=== PATIENT | male | born 1985 | race Caucasian/White ===

== ENCOUNTER 2017-05-04 13:44 | Outpatient (CLI) | payer BC | END 2017-05-04 13:45 | disposition home or self-care (01) | LOC: CTENTCT 13:44 | PROVIDERS: ATTEND Otolaryngology Plastic Surgery within the Head & Neck | DX: J32.9 Chronic sinusitis, unspecified (principal) | CPT/HCPCS: 70486 ==

== ENCOUNTER 2017-05-10 08:04 | Day surgery (SDC) | payer BC ==
[2017-05-09 13:21] VITALS: BMI 25.9
[2017-05-10] MEDS ORDERED: Oxymetazoline HCl 0.05% ( 15 ML ) ONE ×2 (08:51→09:29)
[2017-05-10] MEDS ORDERED: Midazolam HCl 2 mg/2 ml Vial ONE (09:22)
[2017-05-10] MEDS ORDERED: Fentanyl 100 MCG/2 ML VIAL ONE ×4 (09:22→12:11)
[2017-05-10] MEDS ORDERED: Lidocaine 1% w/Epinephrine 1:200K 30 ML VIAL ONE (09:28)
[2017-05-10] MEDS ORDERED: Bacitracin Zinc Ointment 30 gm TUBE ONE (09:29)
[2017-05-10] MEDS ORDERED: Propofol 200 MG/20 ML VIAL ONE (09:45)
[2017-05-10] MEDS ORDERED: Lidocaine 1% PF 5 ML VIAL ONE (09:45)
[2017-05-10] MEDS ORDERED: Dexamethasone 20 MG/5 ML VIAL ONE (09:45)
[2017-05-10] MEDS ORDERED: Ondansetron HCl/PF 4 MG/2 ML Vial ONE (09:45)
[2017-05-10] MEDS ORDERED: Glycopyrrolate 0.2 MG/ML 5 ML SYRINGE ONE (09:45)
[2017-05-10] MEDS ORDERED: Hydrocodone-Acetamin 15 ML UDCUP ONE (13:48)
--- NOTE | 2017-05-11 09:16 | OP ---
DATE OF PROCEDURE: 05/10/2017 PREOPERATIVE DIAGNOSES: 1. Chronic rhinosinusitis. 2. Allergic fungal sinusitis. 3. Nasal septal deviation. 4. Bilateral inferior turbinate hypertrophy. 5. Nasal obstruction. 6. Unilateral alignment. SURGEON: Luis Hudson M.D. ESTIMATED BLOOD LOSS: 50 mL COMPLICATIONS: None. ANESTHESIA: GETA. PROCEDURES PERFORMED: 1. Bilateral endoscopic sinus surgery, total ethmoidectomies. 2. Bilateral endoscopic sinus surgery, maxillary antrostomies. 3. Bilateral endoscopic sinus surgery, frontal sinusotomy. 4. Nasal septoplasty. 5. Bilateral inferior turbinate submucosal resection. 6. Image-guided cranial base navigation surgery with landmark. PROCEDURE IN DETAIL: Patient was taken to the operating room and placed supine on the table. Gener al endotracheal anesthesia was obtained by the Anesthesia staff. Tube was secured in the left lower lip. Patient was then placed in the beach chair position, and Afrin pledgets were placed in the jennifer al cavity. Injections of 1% lidocaine with 1:100,000 epinephrine were made into the nasal septum as well as the inferior turbinates. Patient was then prepped and draped in standard surgical fashion for nasal surgery. Following this, the Afrin pledgets were removed. A Maldonado incision was made on the left nasal septum. Submucoperichondrial dissection was performed. The deviated portions of the septum included portions of the cartilage and the bony septum. These isolated areas were removed us ing three cutting rongeurs. There was noted to be a large dorsal and caudal strut, left intact for support of the nose. The mucoperichondrial flaps were then reapproximated using a 4-0 gut stitch. Any straight pieces of cartilage were crushed prior to this and placed between the mucoperichondrial flaps. Following this, the inferior turbinates were then punctured with a submucosal coblation wan d, and submucosal coblations were performed of multiple areas of the inferior portion of the anterio r inferior turbinate. Please note that the submucosal microdebrider was used to submucosally resect the anterior and infer ior portions of the inferior turbinates bilaterally. Following this, the inferior turbinates were g ently outfractured. A landmark image guidance system was set up and calibrated was noted to be accu rate. A 0 degree scope was advanced in the nasal cavity along with the tracking tools of the 0 degr ee microdebrider, 40 degree microdebrider as well as straight and curved suction. The middle turbin ates were identified and were gently medialized with a [place] elevator. The uncinate process was jannie ntified and was anteriorly fractured using the ball ended probe. Microdebrider and the upbiting Drew mashasley forceps were used to remove the uncinate as well as to identify the natural maxillary sinus o stia, which was gently widened using the ball-ended probe. Following this, the natural maxillary si nus ostia was gently widened using the straight microdebrider on the right maxillary sinus and right ethmoidal area. Copious amounts of fungal debris and polyps were removed using curved suction and upbiting forceps. Following this, right maxillary sinus and anterior ethmoidal area was opened and irrigated. Following this, the ethmoidal bulla was identified bilaterally and was punctured on its medial and inferior aspect and was removed. Following this, the grand lamella was identified bilate rally and was punctured in the posterior ethmoidal cells using the navigation device working from po sterior to anterior. The straight and curved microdebrider were used to open the ethmoidal cells in a mucosal-sparing technique. Following this, the upbiting 40 degree microdebrider blade connecting to the landmark navigation system as well as the 45 degree scope was used to visualize the frontal recess area, which was then further opened opening the frontal sinus ostia bilaterally using the giorgio rodebrider. Following this, the nasal cavity was irrigated. MeroPacks were placed. Merrill splints were placed and secured. The patient tolerated the procedure well.
== END 2017-05-10 14:50 | disposition home or self-care (01) ==
LOC: SDC 08:04
PROVIDERS: ATTEND Otolaryngology Plastic Surgery within the Head & Neck
PROC: 09RM07Z Replacement of Nasal Septum with Autologous Tissue Substitute, Open Approach (ICD-10-PCS; principal; 2017-05-10)
PROC: 099R8ZZ Drainage of Left Maxillary Sinus, Via Natural or Artificial Opening Endoscopic (ICD-10-PCS; principal; 2017-05-10)
PROC: 09BS8ZZ Excision of Right Frontal Sinus, Via Natural or Artificial Opening Endoscopic (ICD-10-PCS; principal; 2017-05-10)
PROC: 09TU8ZZ Resection of Right Ethmoid Sinus, Via Natural or Artificial Opening Endoscopic (ICD-10-PCS; principal; 2017-05-10)
PROC: 09BT8ZZ Excision of Left Frontal Sinus, Via Natural or Artificial Opening Endoscopic (ICD-10-PCS; principal; 2017-05-10)
PROC: 09TL0ZZ Resection of Nasal Turbinate, Open Approach (ICD-10-PCS; principal; 2017-05-10)
PROC: 09TV8ZZ Resection of Left Ethmoid Sinus, Via Natural or Artificial Opening Endoscopic (ICD-10-PCS; principal; 2017-05-10)
PROC: 099Q8ZZ Drainage of Right Maxillary Sinus, Via Natural or Artificial Opening Endoscopic (ICD-10-PCS; principal; 2017-05-10)
DX: J32.9 Chronic sinusitis, unspecified (principal); J34.2 Deviated nasal septum; J30.89 Other allergic rhinitis; J34.3 Hypertrophy of nasal turbinates; F90.0 Attention-deficit hyperactivity disorder, predominantly inattentive type; H33 Retinal detachments and breaks; F17.210 Nicotine dependence, cigarettes, uncomplicated; Z79.52 Long term (current) use of systemic steroids; Z79.2 Long term (current) use of antibiotics; Z88.6 Allergy status to analgesic agent; Z88.0 Allergy status to penicillin; Z98.890 Other specified postprocedural states
CPT/HCPCS: 96374; J0131; J1100; J1170; J2001; J2250; J2405; J2704; J3010

== ENCOUNTER 2019-12-20 10:02 | Emergency (ER) | payer BC, MEDICARE ==
[2019-12-20 10:35] LABS: #Eosinphils 0.1 thou/uL (0.0-0.7); #Lymphocytes 2.5 thou/uL (1.20-3.40); #Monocytes 0.5 thou/uL (0.11-0.59); #Neutrophils 3.4 thou/uL (1.40-6.50); %Basophils 0.7 % (0.0-1.0); %Eosinophils 1.5 % (0.0-10.0); %Lymphocytes 37.6 % (21.0-51.0); %Monocytes 8.3 % (0.0-10.0); %Neutrophils 51.8 % (42.0-75.0); Hemoglobin 14.6 g/dL (14.0-18.0); Mean Corpuscular HGB CONC 33.2 g/dL (32.0-36.0); Mean Corpuscular Hemoglobin 29.2 pg (27.0-31.0); Mean Corpuscular Volume 87.8 fL (78.0-98.0); Platelet Count 308 thou/uL (130-400); RBC Distribution Width 12.1 % (11.5-14.5); Red Blood Cell (RBC) Count 5.01 mill/uL (4.70-6.10); White Blood Cell (WBC) Count 6.5 thou/uL (4.8-10.8)
[2019-12-20 11:02] LABS: ALT (SGPT) 19 U/L (8-55); AST (SGOT) 23 U/L (5-34); Albumin 4.4 g/dL (3.5-5.0); Alkaline Phosphatase 76 U/L (40-110); Anion Gap 11 mmol/L (10-20); BUN (Urea Nitrogen) 16 mg/dL (8.9-20.6); Bilirubin, Total 0.5 mg/dL (0.2-1.2); CK (CPK) 112 U/L (30-200); Calc. Creatinine Clearance 0 mL/min (70-130); Calcium 9.5 mg/dL (7.8-10.44); Carbon Dioxide 27 mmol/L (22-29); Chloride 104 mmol/L (98-107); Estimated GFR-MDRD Greater than 90; Glucose 98 mg/dL (70-105); Lipase 31 U/L (8-78); Potassium 4.4 mmol/L (3.5-5.1); Protein, Total 7.4 g/dL (6.0-8.3); Sodium 138 mmol/L (136-145)
--- NOTE | 2019-12-20 13:21 | RAD ---
PORTABLE UPRIGHT FRONTAL CHEST RADIOGRAPH: DATE: 12/20/2019. COMPARISON: None. HISTORY: Chest pain. FINDINGS: Heart and mediastinal contours are unremarkable. Lungs appear clear. IMPRESSION: No acute findings. POS: EJ
== END 2019-12-20 12:46 | disposition home or self-care (01) ==
LOC: ERS 10:02
DX: R07.89 Other chest pain (principal); F17.210 Nicotine dependence, cigarettes, uncomplicated
CPT/HCPCS: 71045; 80053; 82550; 83690; 84484; 85025; 93005

== ENCOUNTER 2021-09-26 11:57 | Emergency (ER) | payer MEDICARE ==
[2021-09-26] MEDS ORDERED: Bupivacaine 0.5% 10 ML VIAL ONE (14:10)
== END 2021-09-26 14:55 | disposition home or self-care (01) ==
LOC: ERS 11:57
DX: L03.011 Cellulitis of right finger (principal); Z87.891 Personal history of nicotine dependence
CPT/HCPCS: 10060; 87070; 87077; 87186; 87205; J3490

== ENCOUNTER 2023-01-26 10:58 | Emergency (ER) | payer MEDICARE ==
[2023-01-26 11:35] LABS: #Eosinphils 0.2 thou/uL (0.0-0.7); #Monocytes 0.7 thou/uL (0.11-0.59); #Neutrophils 4.8 thou/uL (1.40-6.50); %Basophils 0.5 % (0.0-1.0); %Eosinophils 2.5 % (0.0-10.0); %Lymphocytes 34.7 % (21.0-51.0); %Monocytes 7.9 % (0.0-10.0); %Neutrophils 54.2 % (42.0-75.0); Hemoglobin 14.5 g/dL (14.0-18.0); Mean Corpuscular HGB CONC 33.5 g/dL (32.0-36.0); Mean Corpuscular Hemoglobin 29.7 pg (27.0-31.0); Mean Corpuscular Volume 88.7 fl (78.0-98.0); Mean Platelet Volume 9.6 fL (7.4-10.4); Platelet Count 302 10x3/uL (130-400); RBC Distribution Width 13.6 % (11.5-14.5); Red Blood Cell (RBC) Count 4.88 mill/uL (4.70-6.10); White Blood Cell (WBC) Count 8.8 10x3/uL (4.8-10.8)
[2023-01-26] MEDS ORDERED: Aspirin Chewable 81 MG TAB ONE (12:07)
[2023-01-26 12:08] LABS: ALT (SGPT) 18 U/L (8-55); AST (SGOT) 22 U/L (5-34); Albumin 4.3 g/dL (3.5-5.0); Alkaline Phosphatase 73 U/L (40-110); Anion Gap 13 mmol/L (10-20); BUN (Urea Nitrogen) 11 mg/dL (8.9-20.6); Bilirubin, Total 0.3 mg/dL (0.2-1.2); Calc. Creatinine Clearance 0 mL/min (70-130); Calcium 9.9 mg/dL (7.8-10.44); Carbon Dioxide 25 mmol/L (22-29); Chloride 107 mmol/L (98-107); Estimated GFR 113; Globulin 3.2 g/dL (2.4-3.5); Glucose 96 mg/dL (70-105); Potassium 4.5 mmol/L (3.5-5.1); Protein, Total 7.5 g/dL (6.0-8.3); Sodium 140 mmol/L (136-145)
[2023-01-26 12:14] LABS: Magnesium 2.3 mg/dL (1.6-2.6)
[2023-01-26 15:38] LABS: Troponin I Less than 0.010 ng/mL (< 0.028)
== END 2023-01-26 15:49 | disposition home or self-care (01) ==
LOC: ERS 10:58
DX: I49.3 Ventricular premature depolarization (principal); Z87.891 Personal history of nicotine dependence
CPT/HCPCS: 71045; 80053; 83735; 84484; 85025; 85379; 93005

== ENCOUNTER 2023-06-17 07:08 | Emergency (ER) | payer MEDICARE ==
[2023-06-17] MEDS ORDERED: Ondansetron PF 4 MG/2 ML Vial ONE (07:31)
[2023-06-17] MEDS ORDERED: Haloperidol Lactate 5 MG/ML VIAL ONE (07:49)
[2023-06-17 08:16] LABS: #Monocytes 0.4 thou/uL (0.11-0.59); #Neutrophils 9.5 thou/uL (1.40-6.50); %Basophils 0.3 % (0.0-1.0); %Eosinophils 0.2 % (0.0-10.0); %Lymphocytes 15.6 % (21.0-51.0); %Monocytes 3.2 % (0.0-10.0); %Neutrophils 80.4 % (42.0-75.0); Hematocrit 44.6 % (42.0-52.0); Mean Corpuscular HGB CONC 33.6 g/dL (32.0-36.0); Mean Corpuscular Volume 86.3 fl (78.0-98.0); Mean Platelet Volume 10.1 fL (7.4-10.4); Platelet Count 381 10x3/uL (130-400); RBC Distribution Width 13.1 % (11.5-14.5); Red Blood Cell (RBC) Count 5.17 mill/uL (4.70-6.10); White Blood Cell (WBC) Count 11.8 10x3/uL (4.8-10.8)
[2023-06-17 08:19] LABS: Bacteria/HPF None Seen HPF (None Seen); Bilirubin Negative (Negative); Blood, Urine Negative (Negative); CAUTI Indications for Culture Pelvic or flank pain; Clarity Clear (Clear); Glucose, Urine (Dipstick) Normal (Negative); Ketone, Urine Negative (Negative); Leukocyte Negative Leu/uL (Negative); Nitrite Negative (Negative); Protein, Urine (Dipstick) Negative (Neg-Trace); RBC/HPF 0-3 HPF (0-3); Specific Gravity, Urine 1.019 (1.002-1.036); Squamous Epithelial None Seen HPF (0-3); Urobilinogen Normal mg/dL (Less than 2); WBC/HPF 0-3 HPF (0-3); pH, Urine 6.5 (5.0-9.0)
[2023-06-17 08:20] LABS: Urine Culture Reflex No No
[2023-06-17 08:23] LABS: ALT (SGPT) 19 U/L (8-55); AST (SGOT) 29 U/L (5-34); Albumin 4.5 g/dL (3.5-5.0); Alkaline Phosphatase 85 U/L (40-110); Anion Gap 17 mmol/L (10-20); BUN (Urea Nitrogen) 12 mg/dL (8.9-20.6); Bilirubin, Total 0.4 mg/dL (0.2-1.2); Calc. Creatinine Clearance 0 mL/min (70-130); Carbon Dioxide 21 mmol/L (22-29); Chloride 104 mmol/L (98-107); Estimated GFR 113; Globulin 3.9 g/dL (2.4-3.5); Glucose 142 mg/dL (70-105); Potassium 4.9 mmol/L (3.5-5.1); Protein, Total 8.4 g/dL (6.0-8.3); Sodium 137 mmol/L (136-145)
[2023-06-17 08:27] LABS: Amphetamine Not Detected (NotDetected); Barbiturates Screen Not Detected (NotDetected); Benzodiazepine Screen Not Detected (NotDetected); Cocaine Metabolite Screen Not Detected (NotDetected); Methadone Not Detected (NotDetected); Methamphetamine Not Detected (NotDetected); Opiate Screen Detected (NotDetected); Oxycodone Screen Not Detected (NotDetected); Phencyclidine (PCP) Not Detected (NotDetected); THC/Cannabinoid Screen Detected (NotDetected); Tricyclic Screen Not Detected (NotDetected)
== END 2023-06-17 08:33 | disposition home or self-care (01) ==
LOC: ERS 07:08
DX: R11.10 Vomiting, unspecified (principal); R19.7 Diarrhea, unspecified; Z87.891 Personal history of nicotine dependence
CPT/HCPCS: 80053; 80306; 81001; 85025; 96374; 96375; J1630; J2405

== ENCOUNTER 2023-07-26 18:42 | Emergency (ER) | payer MEDICARE ==
[2023-07-26] MEDS ORDERED: Fluorescein Opthalmic Strip ONE (19:09)
[2023-07-26] MEDS ORDERED: Proparacaine 0.5% Opth 15 ML BOT ONE (19:18)
== END 2023-07-26 19:42 | disposition home or self-care (01) ==
LOC: ERS 18:42
DX: H54.61 Unqualified visual loss, right eye, normal vision left eye (principal); F17.210 Nicotine dependence, cigarettes, uncomplicated
CPT/HCPCS: 99283

== ENCOUNTER 2023-10-18 08:35 | Outpatient (CLI) | payer MEDICARE ==
[2023-10-18] MEDS ORDERED: Iopamidol 370 76% 100 ML VIAL ONE (10:00)
== END 2023-10-18 08:36 | disposition home or self-care (01) ==
LOC: BICCT 08:35
PROVIDERS: ATTEND Family Medicine
DX: R22.1 Localized swelling, mass and lump, neck (principal)
CPT/HCPCS: 70491; Q9967

== ENCOUNTER 2024-06-24 07:08 | Outpatient (CLI) | payer MEDICARE | END 2024-06-24 07:09 | disposition home or self-care (01) | LOC: BICCT 07:08 | PROVIDERS: ATTEND Internal Medicine | DX: K63.89 Other specified diseases of intestine (principal); K76.0 Fatty (change of) liver, not elsewhere classified; M46.1 Sacroiliitis, not elsewhere classified | CPT/HCPCS: 71260; 74177 ==

== ENCOUNTER 2024-08-24 09:53 | Emergency (ER) | payer MEDICARE ==
[2024-08-24] MEDS ORDERED: Ondansetron ODT 4 MG TAB ONE (09:58)
== END 2024-08-24 10:30 ==
LOC: ERS 09:53
DX: Z53.21 Procedure and treatment not carried out due to patient leaving prior to being seen by health care provider (principal)
CPT/HCPCS: Q0162

== ENCOUNTER 2025-04-15 17:38 | Inpatient (IN) | payer MEDICARE ==
[2025-04-15 19:25] LABS: #Basophils 0.05 10x3/uL (0.0-0.2); #Eosinophils 0.13 10x3/uL (0.0-0.7); #Monocytes 0.98 10x3/uL (0.11-0.59); #Neutrophils 5.89 10x3/uL (1.40-6.50); %Basophils 0.5 % (0.0-1.0); %Eosinophils 1.2 % (0.0-10.0); %Lymphocytes 34.0 % (21.0-51.0); %Monocytes 9.1 % (0.0-10.0); %Neutrophils 54.9 % (42.0-75.0); Hematocrit 45.4 % (42.0-52.0); Hemoglobin 14.7 g/dL (14.0-18.0); Mean Corpuscular Hemoglobin 27.8 pg (27.0-31.0); Mean Corpuscular Volume 86.0 fL (78.0-98.0); Platelet Count 414 10x3/uL (130-400); Red Blood Cell (RBC) Count 5.28 mill/uL (4.70-6.10); White Blood Cell (WBC) Count 10.73 10x3/uL (4.8-10.8)
[2025-04-15 19:39] LABS: ALT (SGPT) 17 U/L (Less than 45); AST (SGOT) 28 U/L (11-34); Albumin 4.4 g/dL (3.1-4.5); Alkaline Phosphatase 111 U/L (40-110); Anion Gap 15 mmol/L (10-20); BUN (Urea Nitrogen) 11 mg/dL (8.9-20.6); Bilirubin, Total 0.3 mg/dL (0.3-1.2); Calc. Creatinine Clearance 0 mL/min (70-130); Calcium 9.7 mg/dL (7.8-10.44); Carbon Dioxide 22 mmol/L (22-29); Chloride 104 mmol/L (98-107); Globulin 4.0 g/dL (2.4-3.5); Glucose 91 mg/dL (70-105); Potassium 3.9 mmol/L (3.5-5.1); Sodium 137 mmol/L (136-145)
[2025-04-15] MEDS ORDERED: cefTRIAXone (ROCEPHIN) 2 GM VIAL ONE (20:35)
[2025-04-15] MEDS ORDERED: metroNIDAZOLE 500 MG (100 mL) BAG ONE (21:08)
[2025-04-15] MEDS ORDERED: Electrolyte Replacement Protocol 1 EACH FS PRN (23:45)
[2025-04-15] MEDS ORDERED: Melatonin 3 MG TAB PO PRN (23:48)
[2025-04-15] MEDS ORDERED: Acetaminophen 325 MG TAB PO PRN (23:48)
[2025-04-15] MEDS ORDERED: Calcium Carbonate 500 MG ChewTAB PO PRN (23:48)
[2025-04-15] MEDS ORDERED: Senokot S 8.6-50 MG TAB PO PRN (23:48)
[2025-04-16] MEDS ORDERED: diphenhydrAMINE 50 MG/ML VIAL ONE (00:05)
[2025-04-16] MEDS: VANCOMYCIN 2 GRAM/400 ML Premix BAG IVPB SCH (02:53)
[2025-04-16 02:56] VITALS: BMI 27.3
[2025-04-16] MEDS: HYDROcodone/Acetaminophen 5/325 mg Tablet PO PRN (04:40)
[2025-04-16] MEDS: Vancomycin 1 GM in Premix 1 BAG IVPB SCH ×2 (04:40→12:07)
[2025-04-16 05:37] LABS: #Basophils 0.05 10x3/uL (0.0-0.2); #Eosinophils 0.18 10x3/uL (0.0-0.7); #Monocytes 1.04 10x3/uL (0.11-0.59); #Neutrophils 4.32 10x3/uL (1.40-6.50); %Basophils 0.6 % (0.0-1.0); %Eosinophils 2.1 % (0.0-10.0); %Lymphocytes 35.1 % (21.0-51.0); %Monocytes 12.0 % (0.0-10.0); %Neutrophils 50.0 % (42.0-75.0); Hematocrit 39.6 % (42.0-52.0); Hemoglobin 13.1 g/dL (14.0-18.0); Mean Corpuscular Hemoglobin 28.3 pg (27.0-31.0); Mean Corpuscular Volume 85.5 fL (78.0-98.0); Platelet Count 343 10x3/uL (130-400); Red Blood Cell (RBC) Count 4.63 mill/uL (4.70-6.10); White Blood Cell (WBC) Count 8.65 10x3/uL (4.8-10.8)
[2025-04-16 05:51] LABS: Vancomycin, Random 35.4 ug/mL (See Comment)
[2025-04-16 05:54] LABS: ALT (SGPT) 13 U/L (Less than 45); AST (SGOT) 17 U/L (11-34); Albumin 3.6 g/dL (3.1-4.5); Alkaline Phosphatase 90 U/L (40-110); Anion Gap 13 mmol/L (10-20); BUN (Urea Nitrogen) 11 mg/dL (8.9-20.6); Bilirubin, Total 0.2 mg/dL (0.3-1.2); Calc. Creatinine Clearance 141 mL/min (70-130); Calcium 9.0 mg/dL (7.8-10.44); Carbon Dioxide 22 mmol/L (22-29); Chloride 105 mmol/L (98-107); Globulin 3.1 g/dL (2.4-3.5); Glucose 99 mg/dL (70-105); Potassium 3.7 mmol/L (3.5-5.1); Sodium 136 mmol/L (136-145)
[2025-04-16] MEDS ORDERED: Vancomycin 1 GM in Premix 1 BAG IVPB SCH (09:00)
[2025-04-16] MEDS: Enoxaparin 40 MG (0.4 mL) SYRINGE SC SCH (09:26)
[2025-04-16] MEDS: cefTRIAXone\\ROCEPHIN 1 GM in Sodium Chloride 0.9% 100 ML IVPB SCH (21:07)
[2025-04-16] MEDS: diphenhydrAMINE 50 MG/ML VIAL IVP PRN (21:09)
[2025-04-17 04:45] LABS: Bacteria/HPF None Seen HPF (None Seen); CAUTI Indications for Culture Dysuria,urgency,freq; Glucose, Urine (Dipstick) Normal (Negative); Leukocyte Negative Leu/uL (Negative); Protein, Urine (Dipstick) Negative (Neg-Trace); RBC/HPF None Seen HPF (0-3); Specific Gravity, Urine 1.008 (1.002-1.036); WBC/HPF 0-3 HPF (0-3)
[2025-04-17 04:50] LABS: Urine Culture Reflex No No
[2025-04-17] MEDS: HYDROcodone/Acetaminophen 5/325 mg Tablet PO SCH (06:24)
[2025-04-18 05:26] LABS: #Basophils Less than 0.03 10x3/uL (0.0-0.2); #Eosinophils Less than 0.03 10x3/uL (0.0-0.7); #Monocytes 0.66 10x3/uL (0.11-0.59); #Neutrophils 17.87 10x3/uL (1.40-6.50); %Basophils 0.1 % (0.0-1.0); %Eosinophils 0.0 % (0.0-10.0); %Lymphocytes 6.8 % (21.0-51.0); %Monocytes 3.3 % (0.0-10.0); %Neutrophils 89.4 % (42.0-75.0); Hematocrit 43.8 % (42.0-52.0); Hemoglobin 14.4 g/dL (14.0-18.0); Mean Corpuscular Hemoglobin 28.3 pg (27.0-31.0); Mean Corpuscular Volume 86.2 fL (78.0-98.0); Platelet Count 400 10x3/uL (130-400); Red Blood Cell (RBC) Count 5.08 mill/uL (4.70-6.10); White Blood Cell (WBC) Count 19.97 10x3/uL (4.8-10.8)
[2025-04-18 05:57] LABS: Anion Gap 17 mmol/L (10-20); BUN (Urea Nitrogen) 12 mg/dL (8.9-20.6); Calc. Creatinine Clearance 150 mL/min (70-130); Calcium 10.0 mg/dL (7.8-10.44); Carbon Dioxide 19 mmol/L (22-29); Chloride 105 mmol/L (98-107); Glucose 137 mg/dL (70-105); Potassium 4.2 mmol/L (3.5-5.1); Sodium 137 mmol/L (136-145); Vancomycin, Random 11.1 ug/mL (See Comment)
[2025-04-18 08:19] VITALS: TEMP 98.4
[2025-04-18] MEDS ORDERED: Vancomycin 1.5 GRAM/300 ML BAG 1.5 GM in Premix 1 BAG IVPB SCH (12:00)
[2025-04-18 12:03] VITALS: BP 127/88
== END 2025-04-18 13:20 | disposition home or self-care (01) | DRG 603 ==
LOC: ERS 17:38 → SURG B 23:51 → OBSVTOIN 04-17 14:40
PROVIDERS: ADMIT Internal Medicine; ATTEND Internal Medicine
DX: L03.213 Periorbital cellulitis (principal); H54.7 Unspecified visual loss; M45.9 Ankylosing spondylitis of unspecified sites in spine; E78.5 Hyperlipidemia, unspecified; Z85.038 Personal history of other malignant neoplasm of large intestine; Z88.0 Allergy status to penicillin; Z82.49 Family history of ischemic heart disease and other diseases of the circulatory system; Z98.890 Other specified postprocedural states; Z88.8 Allergy status to other drugs, medicaments and biological substances; Z79.899 Other long term (current) drug therapy
CPT/HCPCS: 36415; 70481; 80048; 80053; 80202; 81001; 85025; 87040; 87081; 96365; 96366; 96367; 96375; 96376; G0378; J0696; J1200; J2919; J3373; J3375